=== PATIENT | male | born 1940 | race Caucasian/White ===

== ENCOUNTER 2022-01-09 09:35 | Outpatient (CLI) | payer MEDICARE, BC, SELFPAY ==
[2022-01-09 12:08] LABS: Albumin* 3.8 g/dL (3.3-5.0); Chloride* 110 mmol/L (96-114)
[2022-01-09 12:09] LABS: Potassium* 4.9 mmol/L (3.6-5.1); Sodium* 142 mmol/L (135-149)
[2022-01-09 12:11] LABS: Bilirubin Total* 0.4 mg/dL (0.1-1.5); Carbon Dioxide* 24 mmol/L (20-32); Cholesterol* 117 mg/dL (90-199); Creatinine* 2.5 mg/dL (0.5-1.5); Estimated Glomerular Filt Rate 25 ml/min; Total Protein* 6.1 g/dL (6.0-8.3)
[2022-01-09 12:12] LABS: Alanine Aminotransferase* 13 U/L (4-50); Alkaline Phosphatase* 71 U/L (40-150); Aspartate Amino Transferase* 15 U/L (12-35); Blood Urea Nitrogen* 35 mg/dL (7-30); Calcium* 8.7 mg/dL (8.4-10.6); Glucose* 84 mg/dL (60-115); HDL Cholesterol* 41 mg/dL (>=40); LDL Cholesterol Calculated 51 mg/dL (<100); Triglycerides* 127 mg/dL (40-149)
[2022-01-09 12:40] LABS: PSA Screen* 3.76 ng/mL (0.10-4.00)
== END 2022-01-09 09:36 | disposition home or self-care (01) ==
PROVIDERS: PCP Family Medicine; Visit Provider Family Medicine
DX: E78.5 Hyperlipidemia, unspecified (principal); I10 Essential (primary) hypertension; Z85.46 Personal history of malignant neoplasm of prostate; Z12.5 Encounter for screening for malignant neoplasm of prostate
CPT/HCPCS: 80053; 80061; 84153

== ENCOUNTER 2022-03-11 14:32 | Outpatient (CLI) | payer MEDICARE, BC, SELFPAY ==
[2022-03-11 17:24] LABS: Chloride* 109 mmol/L (96-114); Potassium* 4.4 mmol/L (3.6-5.1); Sodium* 139 mmol/L (135-149)
[2022-03-11 17:27] LABS: Creatinine* 2.5 mg/dL (0.5-1.5); Estimated Glomerular Filt Rate 25 ml/min
[2022-03-11 17:28] LABS: Blood Urea Nitrogen* 45 mg/dL (7-30); Calcium* 8.5 mg/dL (8.4-10.6); Carbon Dioxide* 22 mmol/L (20-32); Glucose* 96 mg/dL (60-115)
== END 2022-03-11 14:33 | disposition home or self-care (01) ==
PROVIDERS: PCP Family Medicine; Visit Provider Family Medicine
DX: R53.83 Other fatigue (principal); R53.1 Weakness
CPT/HCPCS: 80048

== ENCOUNTER 2022-11-22 11:02 | Emergency (ER) | payer MEDICARE, BC, SELFPAY ==
[2022-11-22 11:14] VITALS: BP 104/72; PULSE 74; RESP 18; TEMP 36.4; O2SAT 98
--- NOTE | 2022-11-22 11:34 | ED_ITS ---
HPI - General Adult General Chief complaint: Extremity Pain/Injury, Upper Stated complaint: Painful L arm, Weak Time Seen by Provider: 11/22/22 11:12 History of Present Illness HPI narrative: This 82-year-old male comes in reporting pain in his left elbow and proximal forearm area since yesterday morning. He is not aware of any injury event or strenuous activity. His family member with him states that he may have fallen and not remembered as sometimes he gets up at night to the bathroom. He does have a history of dementia. He normally ambulates with a walker. He has decreased ability to flex and extend his left elbow. Related Data Home Medications Medication Instructions Recorded Confirmed aspirin 81 mg tablet,delayed 81 mg PO QDAY 11/27/21 11/22/22 release (Adult Low Dose Aspirin) vitamin B complex 1 tab PO QDAY 01/12/22 11/22/22 Previous Rx's Medication Instructions Recorded carvedilol 25 mg tablet 25 mg PO BID #180 tabs 01/12/22 nitroglycerin 0.4 mg sublingual 0.4 mg sublingual Q5M PRN chest 01/12/22 tablet pain #25 tabs rosuvastatin 40 mg tablet 40 mg PO QDAY #90 tabs 01/12/22 isosorbide mononitrate 60 mg 60 mg PO QDAY #90 tabs 05/27/22 tablet,extended release 24 hr hydrocodone 5 mg-acetaminophen 325 1 tab PO Q4-6H PRN pain #12 tabs 11/22/22 mg tablet methylprednisolone 4 mg tablets in See Rx Instructions PO .COMPLEX 11/22/22 a dose pack (Medrol (Alfonso)) #21 ea Allergies Allergy/AdvReac Type Severity Reaction Status Date / Time HMG-CoA reductase inhibitor AdvReac Severe leg pain Uncoded 03/11/22 13:46 Review of Systems Status of ROS: Reports: 10 or more systems reviewed and unremarkable except as noted in History and below Narrative: Constitutional: No fevers, no weight gain or loss. Eyes: No discharge. No vision changes. HENT: No congestion, no sore throat, no ear pain. Cardiovascular: No chest pain, no palpitations. Respiratory: No shortness of breath, no wheezes, no cough. Gastrointestinal: No abdominal pain, no vomiting, no diarrhea. Genitourinary: No dysuria, no hematuria. Musculoskeletal: Left elbow and forearm pain as described above. Skin: No rashes, no pruritis. Neurological: No dizziness, weakness, sensory change, speech change. Endo/Heme/Allergies: No bruising or bleeding. No polydipsia. Pysch: no suicidality, no anxiety, no insomnia. All other systems reviewed and are negative. [facility] Medical History History of common carotid artery stent placement Myocardial infarction Surgical History Hx of heart artery stent Status post cataract extraction Status post lumbar spine surgery for decompression of spinal cord Status post prostatectomy Social History Smoking Status: Never smoker Exam Narrative: Exam Narrative: Constitutional: Well-developed, well-nourished, no acute distress. HEENT: Normocephalic, atraumatic. Neck: Normal range of motion. Nontender. Supple. Heart: Regular. No murmurs. Normal rate. Intact distal pulses. Lungs: Clear to auscultation. No chest discomfort. No wheezes, rhonchi, or rales. Abdomen: Normal bowel sounds. Nontender. No rebound tenderness. Genitalia: Deferred. Back: No midline tenderness. Normal range of motion. Extremities: Diffuse pain in the left elbow and proximal left forearm. There is no sign of deformity or significant swelling. He does have decreased range of motion for both flexion and extension at the elbow joint. Skin: Intact. No rash. Warm. No erythema or pallor. Neurologic: No altered sensation. No weakness. Alert and oriented. Psychiatric: No suicidality. No anxiety or depression. No insomnia. Nursing notes and vitals signs are reviewed. Const: Vital Signs, click to edit/add: Vital Signs - 24 hr 11/22/22 11:14 Temperature 97.5 F L Pulse Rate [Pulse Oximeter] 74 Respiratory Rate 18 Blood Pressure [Ri ght Upper Arm] 104/72 Pulse Oximetry 98 Oxygen Delivery Me thod Room Air Course Vital Signs Vital signs: Initial Vital Signs Temperature 97.5 F L 11/22/22 11:14 Temperature Source Temporal Artery Scan 11/22/22 11:14 Pulse Rate 74 11/22/22 11:14 Respiratory Rate 18 11/22/22 11:14 Blood Pressure 104/72 11/22/22 11:14 Blood Pressure Mean 82 11/22/22 11:14 Blood Pressure Position Sitting 11/22/22 11:14 Pulse Oximetry 98 11/22/22 11:14 Oxygen Delivery Method Room Air 11/22/22 11:14 Vital Signs Temperature 97.5 F L 11/22/22 11:14 Pulse Rate 74 11/22/22 11:14 Respiratory Rate 18 11/22/22 11:14 Blood Pressure 104/72 11/22/22 11:14 Pulse Oximetry 98 11/22/22 11:14 Oxygen Delivery Method Room Air 11/22/22 11:14 Temperature 97.5 F L 11/22/22 11:14 Pulse Rate 74 11/22/22 11:14 Respiratory Rate 18 11/22/22 11:14 Blood Pressure 104/72 11/22/22 11:14 Pulse Oximetry 98 11/22/22 11:14 Oxygen Delivery Method Room Air 11/22/22 11:14 Medical Decision Making MDM Narrative Medical decision making narrative: This patient comes in with pain primarily in his left elbow and he has associated decreased range of motion for flexion and extension. He does not report any specific injury event but does have some dementia and seems to have difficulty remembering things. There is no external sign of injury, that is there is no swelling or injury to the skin. X-ray images of his humerus and forearm on the left upper extremity are negative for fracture. There is evidence of degenerative disease. This patient is okay to return home. He did receive a sling and prescription for a few tablets of [place] and Medrol Dosepak. Imaging Data XR L Humerus: Radiologist's impression: No fracture. 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 XR L Forearm: Radiologist's impression: No fracture deformity. Degenerative joint disease. Discharge Plan Discharge Clinical Impression: Elbow injury Patient Disposition: Home w/ Parent or Adult Condition: Unchanged Additional Instructions: Increase activity as able. Wear sling as needed. Take medications also as needed and directed. Follow-up with orthopedic clinic if not improving. Call [phone] for appointment. Prescriptions: New hydrocodone-acetaminophen 5-325 mg tablet 1 tab PO Q4-6H PRN (Reason: pain) Qty: 12 0RF methylprednisolone [Medrol (Alfonso)] 4 mg tablets,dose pack See Rx Instructions .ROUTE .COMPLEX Qty: 21 0RF Rx Instructions: orally per package directions No Action aspirin [Adult Low Dose Aspirin] 81 mg tablet,delayed release (DR/EC) 81 mg PO QDAY vitamin B complex Tablet 1 tab PO QDAY carvedilol 25 mg tablet 25 mg PO BID Qty: 180 3RF Rx Instructions: must administer with a meal/food nitroglycerin 0.4 mg tablet, sublingual 0.4 mg sublingual Q5M PRN (Reason: chest pain) Qty: 25 0RF Rx Instructions: do not exceed 3 doses per episode rosuvastatin 40 mg tablet 40 mg PO QDAY Qty: 90 3RF isosorbide mononitrate 60 mg tablet extended release 24 hr 60 mg PO QDAY Qty: 90 2RF Follow Up/Referrals: Joe Rdz MD [Primary Care Provider] - Stand Alone Forms: [facility] Info Instructions
--- NOTE | 2022-11-22 11:38 | CRLHL7_ITS ---
For Patients: As a result of the Cures Act, medical imaging exams and procedure reports are released immediately into your electronic medical record. You may view this report before your referring provider. If you have questions, please contact your health care provider. Indication: Pain Technique: Two views left humerus Comparison: None Findings: Osteopenia. Degenerative changes at greater tuberosity. Chronic medial epicondylitis. Narrowing and spurring at the acromioclavicular joint. No fracture or intrinsic lesion. Impression: No fracture. 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 Dictated by Avtar Minor MD @ 11/22/2022 12:29:52 PM (Electronically Signed)
--- NOTE | 2022-11-22 11:38 | CRLHL7_ITS ---
For Patients: As a result of the Century Cures Act, medical imaging exams and procedure reports are released immediately into your electronic medical record. You may view this report before your referring provider. If you have questions, please contact your health care provider. Indication: Pain Technique: Two views left Comparison: None Findings: Degenerative changes are noted at the wrist. Chronic epicondylitis at the elbow. Chronic densities associated with the anterior elbow. No suspicious osseous lesion. No fracture. Impression: No fracture deformity. Degenerative joint disease. Dictated by Avtar Minor MD @ 11/22/2022 12:31:31 PM (Electronically Signed)
== END 2022-11-22 13:05 | disposition home or self-care (01) ==
PROVIDERS: Emergency Provider Emergency Medicine Emergency Medical Services; PCP Family Medicine
DX: S59.902A Unspecified injury of left elbow, initial encounter (principal)
CPT/HCPCS: 73060; 73090; 99284

== ENCOUNTER 2023-06-16 11:17 | Outpatient (CLI) | payer MEDICARE, BC, SELFPAY | END 2023-06-16 11:18 | disposition home or self-care (01) | PROVIDERS: PCP Family Medicine; Visit Provider Family Medicine | DX: E78.5 Hyperlipidemia, unspecified (principal); I10 Essential (primary) hypertension | CPT/HCPCS: 80053; 80061 ==

== ENCOUNTER 2024-02-09 10:23 | Outpatient (CLI) | payer MEDICARE, BC, SELFPAY ==
--- OUTSIDE RECORDS SUMMARY | 2024-02-10 20:01 | XMS_ITS | Clinical Summary ---
Author Organization [facility] Address [place], [place] [address] Care Team Providers Care Power Tong Operator Name Role Phone Joe Rdz MD Primary Care Provider [phone] Allergies No known active allergies Medications Medication Sig Dispensed Refills Start Date End Date Status nitroglycerin (NITROSTAT) 0.4 mg sublingual tablet Once 11/07/2018 Active carvediloL (COREG) 25 mg tabletIndications:Car diomyopathy, dilated, nonischemic (HC) Take 1 tablet by mouth 2 times daily. 180 tablet 3 12/08/2019 Active hydrALAZINE (APRESOLINE TABLET) 50 mg tabletIndications:Non ischemic dilated cardiomyopathy (HC) Take 1 tablet by mouth 3 times daily. 270 tablet 3 12/08/2019 Active isosorbide mononitrate SR (IMDUR) 120 mg Sustained-Release tabletIndications:Car diomyopathy, dilated, nonischemic (HC) Take 1 Tablet (120 mg) by mouth once daily before a meal. 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 Social History Tobacco Use Types Packs/Day Years Used Date Smoking Tobacco: Never Smokeless Tobacco: Never Social Connections Answer Date Recorded Frequency of Communication with Friends and Fami ly Not on file 03/15/2021 Financial Resource Strain Answer Date R ecorded Difficulty of Paying Living Expenses Not on file 03/15/2021 Difficulty of Paying Living Expenses Not on file 03/15/2021 Sex and Gender Information Value Date Recorded Sex Assigned at Not on file Gender Identity Not on file Sexual Orientation Not on file Obstetrics History Last Filed Vital Signs Vital Sign Reading Time Taken Comments Blood Pressure 99/54 12/08/2019 11:04 AM CDT Pulse 61 12/08/2019 11:04 AM CDT Temperature 36.5 C (97.7 F) 10/21/2015 8:27 AM CDT Respiratory Rate 14 12/08/2019 11:04 AM CDT Oxygen Saturation 97% 12/26/2018 10:46 AM CDT Inhaled Oxygen Concentration - - Weight 86.6 kg (191 lb) 12/08/2019 11:04 AM CDT Height 180.3 cm (5' 10.98) 05/29/2016 11:52 AM CDT Body Mass Index 26.65 05/29/2016 11:52 AM CDT Plan of Treatment Health Maintenance Due Date Last Done Comments Tdap 1951 Depression screening for age 12+ 1952 Tetanus booster 1960 Zoster (shingles) series for age 50+ (1 of 2) 1990 Medicare Wellness for age 65+ 2005 Pneumococcal series for age 65+ (1 of 1 - PCV) 2005 RSV vaccine for adults or pr egnancy (1 - 1-dose 75+ series) 2015 BMI (ht and wt on same day) for age 18+ 05/29/2017 0 05/29/2016, 10/21/2015 COVID-19 vaccine series (2023- season) 2023 Influenza for age 65+ 11/14/2023 Care Teams Power Tong Operator Relationship Specialty Start Date End Date Joe Rdz MD [address] [place] [id number] PCP - General Family Practice 11/30/19
== END 2024-02-09 10:24 | disposition home or self-care (01) ==
LOC: NFLDREF 02-10 19:59
PROVIDERS: PCP Family Medicine; Referring Provider Family Medicine; Visit Provider Family Medicine
DX: R30.0 Dysuria (principal); N39.0 Urinary tract infection, site not specified; M54.9 Dorsalgia, unspecified
CPT/HCPCS: 87086

== ENCOUNTER 2024-02-26 13:57 | Observation (INO) | payer MEDICARE, BC, SELFPAY ==
[2024-02-26] VITALS (7 sets, daily range): BP systolic 114–116; BP diastolic 87–93; PULSE 78–101; RESP 12–18; TEMP 36.2; O2SAT 96–100
--- NOTE | 2024-02-26 14:33 | ED_ITS ---
HPI - Weakness General Time Seen by Provider: 14:33 Date Seen: 02/26/24 Chief complaint: Weakness Stated complaint: Trouble breathing not able to eat, can't stand Time Seen by Provider: 02/26/24 14:09 Source: patient, family, RN notes reviewed and old records reviewed Mode of arrival: wheelchair Limitations: no limitations History of Present Illness HPI Narrative: This 83-year-old male is brought in by his sons this morning from his home where he resides independently with his . One of his sons lives next door and they do help. His typically will provide food in meals but patient has been noted to be having decline over the last at least few months. He was into the clinic to see primary care for hematuria on February 08. Sons note that nothing was found, no infection. Urine culture indeed was negative from that visit. Urinalysis from that visit did not support any significant hematuria. This morning the patient refused to eat, did not eat the role that he would typically eat. He states he had some coffee this morning but is sons do not think that that is the case. He will complain of generalized body pain at times to his son's 5 but he notes no pain today. They have not been concerned about any recent illness with him other than the visit for the possible hematuria. Sons did tell nursing staff that they wanted placement for him, they did not bring this up with me immediately. One of the sons was wondering about getting electrolytes and labs, maybe getting IV fluids. I reviewed with him that we certainly will be looking at labs, we can consider IV fluids but I would like to see some of our workup for such as chest x-ray and labs. Patient is currently hemodynamically stable and I do think we have time to look into things and do an appropriate workup. 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 The opted not to do any shunting or further treatment. Patient is known to have had a heart attack in 2020. He has a history of prostate cancer with prostatectomy in 2010, his PSA was elevated to 3.8 back in 2021 and he opted for if no further treatment or evaluation. Complaint: generalized weakness Related Data Home Medications ?Medication ?Instructions ?Recorded ?Confirmed aspirin 81 mg tablet,delayed 81 mg PO QDAY 11/27/21 02/09/24 release (Adult Low Dose Aspirin) gabapentin 300 mg capsule 300 - 600 mg PO BID 02/09/24 Previous Rx's ?Medication ?Instructions ?Recorded carvedilol 25 mg tablet 25 mg PO BID #180 tabs 06/16/23 rosuvastatin 40 mg tablet 40 mg PO QDAY #90 tabs 06/16/23 isosorbide mononitrate 30 mg 30 mg PO QDAY #90 tabs 11/30/23 tablet,extended release 24 hr Allergies Allergy/AdvReac Type Severity Reaction Status Date / Time HMG-CoA reductase inhibitor AdvReac Severe leg pain Uncoded 02/09/24 10:25 Review of Systems Status of ROS: Reports: 6 or more systems reviewed and unremarkable except as noted in History and below Narrative: Do question patient's reliability on his review of systems however. [facility] Medical History History of common carotid artery stent placement ?Z98.890 - Other specified postprocedural states (ICD-10) ?Z95.828 - Presence of other vascular implants and grafts (ICD-10) Myocardial infarction ?I21.9 - Acute myocardial infarction, unspecified (ICD-10) Surgical History Status post lumbar spine surgery for decompression of spinal cord ?Z98.890 - Other specified postprocedural states (ICD-10) Status post cataract extraction ?Z98.49 - Cataract extraction status, unspecified eye (ICD-10) Status post prostatectomy ?Z90.79 - Acquired absence of other genital organ(s) (ICD-10) Hx of heart artery stent ?Z95.5 - Presence of coronary angioplasty implant and graft (ICD-10) Social History What is your current living situation?: I presently have a place to live Problems where you live: no known problems In the past 12 months, utilities in danger of being shut off: no In the past 12 mos, have been you worried that your food would run out before you had money to buy more?: never true In the past 12 mos, the food you bought just didn't last and you didn't have money to buy more?: never true Smoking Status: Never smoker How often does anyone, including family, friends and others, physically hurt you : never How often does anyone, including family, friends and others, insult or talk down to you: never How often does anyone, including family, friends and others, threaten you with harm: never How often does anyone, including family, friends and others, scream or curse at you: never Exam Const: Vital Signs, click to edit/add: Vital Signs - 24 hr 02/26/24 14:12 02/26/24 14:16 02/26/24 14:50 Temperature 97.1 F L Pulse Rate 97 Pulse Rate [Pulse Oximeter] 78 Respiratory Rate 18 Blood Pressure 115/92 H Blood Pressure [Ri ght Upper Arm] 115/92 H Pulse Oximetry 100 98 98 Oxygen Delivery Me thod Room Air 02/26/24 15:40 02/26/24 17:09 Temperature Pulse Rate 97 101 H Pulse Rate [Pulse Oximeter] Respiratory Rate Blood Pressure 116/93 H 114/87 Blood Pressure [Ri ght Upper Arm] Pulse Oximetry 98 96 Oxygen Delivery Me thod This 83-year-old male is alert and interactive, lying in bed. Somewhat disheveled but pleasant, conversive with me. Pupils are equal round reactive, sclera clear. He has some mattering below is eyes stuck on the lower eyelids of his skin. There is no conjunctival changes however. Symmetrical facial function, lips appear normal. Oral mucosa somewhat dry. Neck slender, lying over to his left side in bed, feel no masses or adenopathy. Lungs sound clear, no wheezing or crackles but does seem like he is a bit tachypneic when attempting to talk. Respiratory rate baseline is not elevated however. CV regular rate and rhythm, here no significant murmur. Abdomen is slender but soft, no rebound or guarding, no organomegaly. Has no lower extremity edema. He has 5/5 symmetric hand inside sales associate strength, normal strength about is plantar flexion dorsiflexion of his feet/ankles, can lift each leg off the bed. Note no baseline tremor. Documenting provider has reviewed patient's vital signs: yes Course Course ED Course: This patient has chronic medical issues and may just be having general decline. We certainly will do full workup and look at all labs, obtain EKG. Will look at a portable chest x-ray. Will do the triple viral swab in case he may need placement. This could be anything from metabolic to progressive hydrocephalus and dementia which she opted not to do anything further with in 2020, complicating silent PA, infectious etiology. Reevaluation(s) Time of Reevaluation #1: 15:29 Reevaluation #1: Have reviewed initial labs with patient's venous lactate 3.3 and venous pH of 7.269. Will initiate 500 mL normal saline. Await rest of his labs. Time of Reevaluation #2: 16:04 Reevaluation #2: But have reviewed with patient's son that there dad is certainly seemingly quite sick based on labs. His liver enzymes and bilirubin are elevated, lactate is up. His creatinine is at 3 at his baseline chronic kidney disease but is potassium is at 6, was 5.3 at his last clinic visit on February 08. We did discuss cholecystitis and cholecystostomy tube, do not feel that he is a candidate for cholecystectomy, probable high surgical risk. He we discussed his potassium, that he certainly may be trending towards requirements for dialysis, may possibly just be ill precipitating this. His 1 son had contacted the hospice already, they are considering hospice for him. They would like a bit more information. We did discuss doing CT imaging. Patient Registration Rep is not here and we are under severe whether with no transfers. They do not want me to call the ticket speculator in at this point, will just rely on CT imaging at this point. Time of Reevaluation #3: 17:49 Reevaluation #3: Have went back to talk to his sons. I have both CT reports, did add in a chest CT when he was over in Radiology as they called me over due to the aneurysm. 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 He is complaining of back pain at this time, has become quite agitated. We did give him 0.5 mg IV Ativan as his sons agree with hospice/comfort care. His pro BNP is severely elevated at 50,000 thousand, there is some fluid definitely seen on imaging. He does have gallstones in some fluid around the gallbladder but there is fluid around the liver as well. His liver enzyme elevation may actually be from congestive heart failure, there still could be a component of gallbladder disease, we do not know at this point. He also has his worsening renal failure with potassium elevation. IV fluids would be given if he were not in such significant congestive heart failure. He most definitely is not in a good situation for surgical correction of his aneurysm, sons understand and do not want to pursue this. I have already spoken with the hospitalist regarding this patient, we will make him comfort care. Have reviewed with the sons what that will look like. We are not planning on doing IV fluids, can initiate Ativan, morphine and Haldol p.r.n. as needed for symptoms. They are comfortable with this. They were given copies of his CT reports so that they can share with other family members. Vital Signs Vital signs: Initial Vital Signs Pulse Rate 97 02/26/24 14:12 Blood Pressure 115/92 H 02/26/24 14:12 Blood Pressure Mean 99 02/26/24 14:12 Pulse Oximetry 100 02/26/24 14:12 Vital Signs Pulse Rate 97 02/26/24 14:12 Blood Pressure 115/92 H 02/26/24 14:12 Pulse Oximetry 100 02/26/24 14:12 Temperature 97.1 F L 02/26/24 14:16 Pulse Rate 101 H 02/26/24 17:09 Respiratory Rate 18 02/26/24 14:16 Blood Pressure 114/87 02/26/24 17:09 Pulse Oximetry 96 02/26/24 17:09 Oxygen Delivery Method Room Air 02/26/24 14:16 Medications Administered Medications: Generic Name Dose Route Start Last Admin Trade Name Freq PRN Reason Stop Dose Admin Lorazepam 0.5 mg 02/26/24 17:36 02/26/24 17:49 Lorazepam 2 Mg/Ml Inj IVP 0.5 mg Q6H PRN Administration Discontinued Medications Generic Name Dose Route Start Last Admin Trade Name Freq PRN Reason Stop Dose Admin Sodium Chloride 500 mls @ 500 mls/hr 02/26/24 15:28 02/26/24 17:47 0.9 % Sodium Chloride 500 Ml IV 02/26/24 16:27 Infused .Q1H ONE Infusion MDM - Weakness Lab Data Attestation: I reviewed the patient's lab results. Labs: Lab Results 02/26/24 02/26/24 Range/Units 14:45 15:15 WBC 9.43 (4.50-11.00) K/uL RBC 3.47 L (4.30-5.90) m/uL Hgb 11.1 L (13.5-17.5) gm/dL Hct 35.6 L (37.0-53.0) % MCV 103 H (80-100) fL MCH 32 (26-34) pg MCHC 31 L (32-36) gm/dL RDW Coeff of Khadar 17.9 H (11.5-15.5) % Plt Count 141 (140-440) K/uL Neut % (Auto) 85.7 H (42.0-72.0) % Lymph % (Auto) 7.8 L (20-44) % [place] % (Auto) 6.0 (0.0-11.0) % Eos % (Auto) 0.0 (0.0-7.0) % Baso % (Auto) 0.2 (0.0-3.0) % Neut # (Auto) 8.10 H (1.7-7.0) K/uL Lymph # (Auto) 0.70 L (0.90-2.90) K/uL [place] # (Auto) 0.60 (0.00-0.90) K/UL Eos # (Auto) 0.00 (0.00-0.50) K/uL Baso # (Auto) 0.02 (0.00-0.30) K/uL Abs Immat Gran (auto) 0.03 (0.00-0.30) K/uL Imm/Tot Granulo (auto) 0.3 % ESR 7 (2-15) mm/hr VBG pH 7.269 L (7.32-7.43) VBG pCO2 33 L (40-50) mmHG VBG pO2 < 30.1 (25-47) mmHG VBG HCO3 15 L (21-28) mmol/L Sodium 141 (135-149) mmol/L Potassium 6.0 H (3.6-5.1) mmol/L Chloride 111 (96-114) mmol/L Carbon Dioxide 14 L (20-32) mmol/L Anion Gap 16 H (7-15) mEq/L BUN 61 H (7-30) mg/dL Creatinine 3.0 H (0.5-1.5) mg/dL Estimated GFR 20 ml/min Glucose 103 (60-115) mg/dL Lactate 3.3 H (0.5-1.9) mmol/L Calcium 9.3 (8.4-10.6) mg/dL Magnesium 2.6 (1.5-2.6) mg/dL Total Bilirubin 1.6 H (0.1-1.5) mg/dL AST 496 H (12-35) U/L ALT 386 H (4-50) U/L Alkaline Phosphatase 102 (40-150) U/L Troponin I 0.04 (0.01-0.04) ng/mL C-Reactive Protein 2.1 H (0.5-1.0) mg/dL NT-Pro-B Natriuret Pep 19425 pg/mL Total Protein 7.2 (6.0-8.3) g/dL Albumin 4.2 (3.3-5.0) g/dL SARS-CoV-2 (PCR) Negative SARS-CoV-2 (Negative) Influenza Type A (PCR) Negative PCR FLU A (Negative) Influenza Type B (PCR) Negative PCR FLU B (Negative) RSV (PCR) Negative PCR RSV (Negative) Imaging Data Chest x-ray: Attestation: I have reviewed the pertinent imaging results. My impression: Has increased cardiac size, maybe some increased markings consistent with edema. Radiologist's impression: Patient: EMELIA STOLL SR. Facility:?[facility] Patient ID:?[id number] Site Patient ID:?[id number]. Site :?[id number] Study:?XRay-Chest Portable-02/26/2024 3:00:15 PM Ordering Physician:Arielle Armstrong Final Report: Indication: : Weakness TECHNIQUE: Single-view chest. FINDINGS: Enlarged cardiac silhouette. Slight prominence interstitial markings may represent pulmonary edema. No effusion or pneumothorax. Dictated by Denia Nick MD @ 02/26/2024 4:03:28 PM (Electronic Signature) CT scan - abdomen: Attestation: I have reviewed the pertinent imaging results. Radiologist's impression: Patient: EMELIA STOLL . Facility:?[facility] Patient ID:?[id number] Site Patient ID:?[id number]. Site :?[id number] Study:?CT-Abdomen/Pelvis w/o-02/26/2024 4:20:36 PM Ordering Physician:Arielle Armstrong Final Report: Indication: Weakness, elevated LFTs. Technique: CT of the abdomen and pelvis was performed without contrast. Comparison: None available. Findings: Visualized lung bases: Mild interlobular septal thickening in the visualized lung bases. Trace bilateral pleural effusion. Moderate cardiomegaly. Atherosclerotic coronary artery calcifications. Liver: Diffuse hepatic steatosis. Trace perihepatic ascites. Small calcified gal lstones within the gallbladder body and neck with hyperdense sludge. No gallbladder distension. Trace pericholecystic edema/stranding, possibly due to perihepatic ascites. No biliary ductal dilation. Pancreas: Unremarkable for unenhanced technique. Spleen: Unremarkable for unenhanced technique. Adrenals: Unremarkable for unenhanced technique. Kidneys: Moderate left hydroureteronephrosis with atrophic left kidney. No definite ureteral calculus is identified though there are left pelvic sidewall surgical clips in the region of the distal ureter. No right hydronephrosis or nephrolithiasis. Aorta/IVC: Extensive atherosclerotic arterial calcifications. 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 Infrarenal abdominal aortic aneurysm measuring 7.0 x 6.9 cm. 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 Left common iliac artery aneurysms measuring 1.9 cm. Lymph nodes: No lymphadenopathy. Prominent inguinal lymph nodes measuring less than 1 cm in short axis Bowel: Nonobstructed bowel. Sigmoid diverticulosis with minimal stranding at the junction of the descending and sigmoid colon. Normal appendix. No intraperitoneal free air. Small volume pelvic free fluid. Pelvis: Status post prostatectomy. Surgical clips along the pelvic sidewalls. Soft tissue thickening along the left aspect of the bladder in the region of the distal ureter measures approximally 4.4 x 1.8 cm in axial dimensions. Bones/body wall: Severe multilevel degenerative disc disease and facet arthropathy. Osseous demineralization. Sclerotic lesion within the S2 vertebral body. Lower thoracic diffuse idiopathic skeletal hyperostosis. Impression: 1. Diffuse hepatic steatosis with trace perihepatic ascites. Cholelithiasis with trace pericholecystic edema which may be secondary to perihepatic ascites. No additional findings to suggest acute cholecystitis. Recommend correlation for right upper quadrant abdominal pain and consider ultrasound as clinically indicated. 2. Infrarenal abdominal aortic aneurysm measuring 7 cm. Recommend vascular surgery referral due to increased risk of rupture. Additionally, there is a saccular aneurysm arising from the distal descending thoracic aorta as well as bilateral common iliac artery aneurysms, as described. 3. Sigmoid diverticulosis with minimal stranding at the junction of the descending and sigmoid colon, age-indeterminate and may be secondary to mild acute diverticulitis versus sequela of prior diverticulitis. 4. Status post prostatectomy and pelvic lymphadenectomy. There is moderate left hydroureteronephrosis with dilated left ureter to the level of the left pelvic surgical clips/soft tissue thickening along the left aspect of the bladder. Fin dings may represent postoperative change versus local recurrence as a cause for the left hydroureteronephrosis. Left renal atrophy is present. 5. Sclerotic lesion within the S2 vertebral body. If this patient has a history of prostate cancer, findings raise concern for osseous metastasis. 6. Cardiomegaly with mild interstitial edema in the visualized lung bases and trace pleural effusions. Findings were discussed via telephone with Patti Villareal on 02/26/2024 at 5:10 p.m.. Please note that all CT scans at this facility use dose modulation, iterative reconstruction, and/or weight-based dosing when appropriate to reduce radiation dose to as low as reasonably achievable. Dictated by Sandy Yousif MD @ 02/26/2024 5:17:21 PM (Electronic Signature) CT scan - chest: Attestation: I have reviewed the pertinent imaging results. Radiologist's impression: Patient: EMELIA STOLL . Facility:?[facility] Patient ID:?[id number] Site Patient ID:?[id number]. Site :?[id number] Study:?CT-Chest w/o-02/26/2024 4:28:11 PM Ordering Physician:Arielle Armstrong Final Report: INDICATION: Weakness TECHNIQUE: CT chest without contrast. COMPARISON: None. FINDINGS: Lungs and pleura: Emphysema. Mild interlobular septal thickening. Small effusions bilaterally. Subpleural 4 millimeter nodule right middle lobe 3/59. Basilar atelectasis Heart and vasculature: 4.3 centimeter ascending thoracic aortic aneurysm. Descending thoracic aorta measures 3.5 centimeters mild diffuse atherosclerotic vascular calcifications. The heart is enlarged coronary artery calcification. The distal thoracic aorta at the level of the GE junction is aneurysmal measuring 3.9 centimeters Along the distal thoracic aorta there is a saccular aneurysm measuring approximally 1.7 x 1.6 centimeters . Lymph nodes/mediastinum: No mediastinal, hilar, or axillary adenopathy. Chest wall: No masses. Upper abdomen: There may be edematous changes in right upper quadrant this is only partially seen. Bones: Unremarkable for age. IMPRESSION: 1. Ascending thoracic aorta measuring 4.3 centimeters. The mid descending thoracic aorta measures 3.5 centimeters distal descending thoracic aorta at the level of the diaphragmatic hiatus measures 3.9 centimeters. There is a saccular aneurysm off the distal thoracic aorta measuring 1.7 x 1.6 centimeters. 2. Small effusions. Interlobular septal thickening may represent pulmonary edema. 4 millimeter right middle lobe nodule follow-up per Fleischner society guidelines. Findings in the abdomen pelvis can be referred to the accompanying CT abdomen pelvis report. Please note that all CT scans at this facility use dose modulation, iterative reconstruction, and/or weight-based dosing when appropriate to reduce radiation dose to as low as reasonably achievable. Dictated by Denia Nick MD @ 02/26/2024 5:07:29 PM (Electronic Signature) ECG Data Attestation: I personally reviewed and interpreted this ECG as follows: (Atrial fibrillation, 92 beats per minute, left bundle branch block) ECG interpretation date: 02/26/24 ECG interpretation time: 15:30 Prior ECG tracings: available for review (EKG from 1999 shows atrial fibrillation at 64 beats per minute, left bundle branch block.) Discharge Plan Discharge Clinical Impression: Acute hyperkalemia, Prostate cancer Chronic kidney disease Qualifiers: Chronic kidney disease stage: stage 4 (GFR 15-29) Qualified Code(s): N18.4 - Chronic kidney disease, stage 4 (severe) Abdominal aortic aneurysm Qualifiers: Abdominal aorta location: unspecified Presence of rupture: without rupture Qualified Code(s): I71.40 - Abdominal aortic aneurysm, without rupture, unspecified Cholelithiasis Qualifiers: Cholelithiasis location: gallbladder Congestive heart failure Qualifiers: Heart failure type: unspecified Heart failure chronicity: acute on chronic Qualified Code(s): I50.9 - Heart failure, unspecified Patient Disposition: Admitted As Observation Prescriptions: No Action carvedilol 25 mg tablet 25 mg PO BID Qty: 180 3RF Rx Instructions: must administer with a meal/food rosuvastatin 40 mg tablet 40 mg PO QDAY Qty: 90 3RF gabapentin 300 mg capsule 300 - 600 mg PO BID aspirin [Adult Low Dose Aspirin] 81 mg tablet,delayed release (DR/EC) 81 mg PO QDAY isosorbide mononitrate 30 mg tablet extended release 24 hr 30 mg PO QDAY Qty: 90 0RF Follow Up/Referrals: Joe Rdz MD [Primary Care Provider] -
--- NOTE | 2024-02-26 14:40 | CRLHL7_ITS ---
For Patients: As a result of the Century Cures Act, medical imaging exams and procedure reports are released immediately into your electronic medical record. You may view this report before your referring provider. If you have questions, please contact your health care provider. Indication: : Weakness TECHNIQUE: Single-view chest. FINDINGS: Enlarged cardiac silhouette. Slight prominence interstitial markings may represent pulmonary edema. No effusion or pneumothorax. Dictated by Denia Nick MD @ 02/26/2024 4:03:28 PM (Electronically Signed)
[2024-02-26 15:20] LABS: HCO3 VBG 15 mmol/L (21-28); Lactate* 3.3 mmol/L (0.5-1.9); PCO2 VBG 33 mmHG (40-50); PO2 VBG < 30.1 mmHG (25-47); pH VBG 7.269 (7.32-7.43)
[2024-02-26 15:21] LABS: Basophils Absolute Auto 0.02 K/uL (0.00-0.30); Basophils Percent Auto 0.2 % (0.0-3.0); Hematocrit 35.6 % (37.0-53.0); Hemoglobin* 11.1 gm/dL (13.5-17.5); Immature Granulocytes Abs Auto 0.03 K/uL (0.00-0.30); Immature Granulocytes Pct Auto 0.3 %; Lymphocytes Percent Auto 7.8 % (20-44); Mean Corpuscular HGB Conc 31 gm/dL (32-36); Mean Corpuscular Hemoglobin 32 pg (26-34); Mean Corpuscular Volume 103 fL (80-100); Neutrophils Percent Auto 85.7 % (42.0-72.0); Platelet Count* 141 K/uL (140-440); RDW Coefficient of Variation % 17.9 % (11.5-15.5); Red Blood Count 3.47 m/uL (4.30-5.90); White Blood Count* 9.43 K/uL (4.50-11.00)
[2024-02-26 15:35] LABS: Albumin* 4.2 g/dL (3.3-5.0); Chloride* 111 mmol/L (96-114); Sodium* 141 mmol/L (135-149)
[2024-02-26 15:37] LABS: Slide Review Reflex No
[2024-02-26 15:38] LABS: Alanine Aminotransferase* 386 U/L (4-50); Alkaline Phosphatase* 102 U/L (40-150); Anion Gap 16 mEq/L (7-15); Aspartate Amino Transferase* 496 U/L (12-35); Bilirubin Total* 1.6 mg/dL (0.1-1.5); Carbon Dioxide* 14 mmol/L (20-32); Estimated Glomerular Filt Rate 20 ml/min; Total Protein* 7.2 g/dL (6.0-8.3)
[2024-02-26 15:39] LABS: Blood Urea Nitrogen* 61 mg/dL (7-30); Calcium* 9.3 mg/dL (8.4-10.6); Glucose* 103 mg/dL (60-115); Magnesium* 2.6 mg/dL (1.5-2.6)
[2024-02-26] MEDS: 0.9 % SODIUM CHLORIDE 500 ML 500 ML IV (15:39)
[2024-02-26 15:41] LABS: C Reactive Protein* 2.1 mg/dL (0.5-1.0)
[2024-02-26 15:50] LABS: Troponin I* 0.04 ng/mL (0.01-0.04)
[2024-02-26 15:52] LABS: PCR FLU A Negative PCR FLU A (Negative); PCR FLU B Negative PCR FLU B (Negative); PCR RSV Negative PCR RSV (Negative); SARS PCR* Negative SARS-CoV-2 (Negative)
--- NOTE | 2024-02-26 16:04 | CRLHL7_ITS ---
For Patients: As a result of the Century Cures Act, medical imaging exams and procedure reports are released immediately into your electronic medical record. You may view this report before your referring provider. If you have questions, please contact your health care provider. Indication: Weakness, elevated LFTs. Technique: CT of the abdomen and pelvis was performed without contrast. Comparison: None available. Findings: Visualized lung bases: Mild interlobular septal thickening in the visualized lung bases. Trace bilateral pleural effusion. Moderate cardiomegaly. Atherosclerotic coronary artery calcifications. Liver: Diffuse hepatic steatosis. Trace perihepatic ascites. Small calcified gallstones within the gallbladder body and neck with hyperdense sludge. No gallbladder distension. Trace pericholecystic edema/stranding, possibly due to perihepatic ascites. No biliary ductal dilation. Pancreas: Unremarkable for unenhanced technique. Spleen: Unremarkable for unenhanced technique. Adrenals: Unremarkable for unenhanced technique. Kidneys: Moderate left hydroureteronephrosis with atrophic left kidney. No definite ureteral calculus is identified though there are left pelvic sidewall surgical clips in the region of the distal ureter. No right hydronephrosis or nephrolithiasis. Aorta/IVC: Extensive atherosclerotic arterial calcifications. 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 Infrarenal abdominal aortic aneurysm measuring 7.0 x 6.9 cm. 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 Left common iliac artery aneurysms measuring 1.9 cm. Lymph nodes: No lymphadenopathy. Prominent inguinal lymph nodes measuring less than 1 cm in short axis Bowel: Nonobstructed bowel. Sigmoid diverticulosis with minimal stranding at the junction of the descending and sigmoid colon. Normal appendix. No intraperitoneal free air. Small volume pelvic free fluid. Pelvis: Status post prostatectomy. Surgical clips along the pelvic sidewalls. Soft tissue thickening along the left aspect of the bladder in the region of the distal ureter measures approximally 4.4 x 1.8 cm in axial dimensions. Bones/body wall: Severe multilevel degenerative disc disease and facet arthropathy. Osseous demineralization. Sclerotic lesion within the S2 vertebral body. Lower thoracic diffuse idiopathic skeletal hyperostosis. Impression: 1. Diffuse hepatic steatosis with trace perihepatic ascites. Cholelithiasis with trace pericholecystic edema which may be secondary to perihepatic ascites. No additional findings to suggest acute cholecystitis. Recommend correlation for right upper quadrant abdominal pain and consider ultrasound as clinically indicated. 2. Infrarenal abdominal aortic aneurysm measuring 7 cm. Recommend vascular surgery referral due to increased risk of rupture. Additionally, there is a saccular aneurysm arising from the distal descending thoracic aorta as well as bilateral common iliac artery aneurysms, as described. 3. Sigmoid diverticulosis with minimal stranding at the junction of the descending and sigmoid colon, age-indeterminate and may be secondary to mild acute diverticulitis versus sequela of prior diverticulitis. 4. Status post prostatectomy and pelvic lymphadenectomy. There is moderate left hydroureteronephrosis with dilated left ureter to the level of the left pelvic surgical clips/soft tissue thickening along the left aspect of the bladder. Findings may represent postoperative change versus local recurrence as a cause for the left hydroureteronephrosis. Left renal atrophy is present. 5. Sclerotic lesion within the S2 vertebral body. If this patient has a history of prostate cancer, findings raise concern for osseous metastasis. 6. Cardiomegaly with mild interstitial edema in the visualized lung bases and trace pleural effusions. Findings were discussed via telephone with Patti Villareal on 02/26/2024 at 5:10 p.m.. Please note that all CT scans at this facility use dose modulation, iterative reconstruction, and/or weight-based dosing when appropriate to reduce radiation dose to as low as reasonably achievable. Dictated by Sandy Yousif MD @ 02/26/2024 5:17:21 PM (Electronically Signed)
[2024-02-26 16:16] LABS: NT Pro B Type NatriureticPept* 58500 pg/mL
[2024-02-26 16:18] LABS: Erythrocyte SedimentationRate* 7 mm/hr (2-15)
--- NOTE | 2024-02-26 16:21 | CRLHL7_ITS ---
For Patients: As a result of the Century Cures Act, medical imaging exams and procedure reports are released immediately into your electronic medical record. You may view this report before your referring provider. If you have questions, please contact your health care provider. INDICATION: Weakness TECHNIQUE: CT chest without contrast. COMPARISON: None. FINDINGS: Lungs and pleura: Emphysema. Mild interlobular septal thickening. Small effusions bilaterally. Subpleural 4 millimeter nodule right middle lobe . Basilar atelectasis Heart and vasculature: 4.3 centimeter ascending thoracic aortic aneurysm. Descending thoracic aorta measures 3.5 centimeters mild diffuse atherosclerotic vascular calcifications. The heart is enlarged coronary artery calcification. The distal thoracic aorta at the level of the GE junction is aneurysmal measuring 3.9 centimeters Along the distal thoracic aorta there is a saccular aneurysm measuring approximally 1.7 x 1.6 centimeters . Lymph nodes/mediastinum: No mediastinal, hilar, or axillary adenopathy. Chest wall: No masses. Upper abdomen: There may be edematous changes in right upper quadrant this is only partially seen. Bones: Unremarkable for age. IMPRESSION: 1. Ascending thoracic aorta measuring 4.3 centimeters. The mid descending thoracic aorta measures 3.5 centimeters distal descending thoracic aorta at the level of the diaphragmatic hiatus measures 3.9 centimeters. There is a saccular aneurysm off the distal thoracic aorta measuring 1.7 x 1.6 centimeters. 2. Small effusions. Interlobular septal thickening may represent pulmonary edema. 4 millimeter right middle lobe nodule follow-up per Fleischner society guidelines. Findings in the abdomen pelvis can be referred to the accompanying CT abdomen pelvis report. Please note that all CT scans at this facility use dose modulation, iterative reconstruction, and/or weight-based dosing when appropriate to reduce radiation dose to as low as reasonably achievable. Dictated by Denia Nick MD @ 02/26/2024 5:07:29 PM (Electronically Signed)
[2024-02-26] MEDS: LORazepam 2 MG/ML inj 0.5 MG IVP (17:49)
--- NOTE | 2024-02-26 18:06 | PM.IMHP1 ---
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 He has known heart disease with half HFrEF, chronic kidney disease, cognitive decline that has dwindled in the last year. Acutely he seems more short of breath and confused and weak in the last few days. He lives with his , son who lives next door. They have been very supportive but recognized that there has been more dramatic changes in the last few weeks. In 2020 he had a non-STEMI that transferred him to [facility] where he had PTCA and stent placement. At that time he had acute systolic heart failure and this likely has just worsened over time. His BNP at that time was 6000 and now it is 58,000. He has been in stage 4 chronic kidney disease for several years. He has had normal liver enzymes until jacinto. When compared to January 2024 labs he has all new liver congestion and ascites. No fever. He has adequate blood pressure mildly tachycardic. No significant respiratory distress but his respiratory effort has been noted to be weak the last few days. He has been disoriented at home. Mildly agitated at times. ER COURSE: CT chest abdomen pelvis. Labs. Small fluid bolus. IV 0.5 mg of lorazepam. CODE STATUS: DNR/DNI. Hospice desired. EMERGENCY CONTACT PLAN: He is close with both sons and obviously he lives with his . I spoke with Anuj acsey. Anuj Bosch Rel To Pat Son I've updated the PFSH, medications and allergies in the Expanse tabs. INVESTIGATIONS: LABS/MICRO/ECG/IMAGING Blood pressure has been adequate 115/90. Pulse is high 90s to low 100s. Respiratory rate is 18. His pulse ox is 96%. On room air. I have reviewed his blood work. I note a chronic anemia with a hemoglobin of 11.1. A normal white blood cell count. And elevated MCV at 103. Platelet count a 141 I note a anion gap metabolic acidosis at 7.2 pCO2 33, bicarb is 14. Stable chronic kidney disease with a creatinine of 3.0. BUN of 61. GFR 20. Glucose 103. Lactate 3.3. New transaminitis with an AST and ALT of 496/386. Total bili 1.6 Normal troponin C reactive protein 2.1 BNP is 58,500 and three years ago it was 6,052 at [facility]. Neg resp viral screen. Last echo was 2020 during [facility] hospitalization for NSTEMI + PTCA w/stent placement in proximal RCA Final Impressions 1. Severely enlarged left ventricular chamber size, calculated ejection fraction; 31%. 2. Regional wall motion abnormalities were present (see wall motion graphics). 3. Grade 1/3 left ventricular diastolic dysfunction, consistent with low to normal left ventricular filling pressure. 4. Mildly enlarged right ventricular chamber size with normal systolic function. ?Estimated RV systolic pressure; 26 mm Hg assuming right atrial pressure of 5 mmHg. 5. No hemodynamically significant valvular heart disease. 6. Mildly enlarged mid ascending aorta diameter (diameter 46 mm at mid level). Upper limit of normal for the patient ?43 mm. 7. Normal inferior vena cava size with normal inspiratory collapse (>50%). 8. No pericardial effusion. 9. Compared to the report of 05/15/2016 the following changes have occurred: Regional wall motion abnormalities are evident on today's exam. Side by side comparison of images performed. REVIEW OF SYSTEMS: 12-point ROS completed with patient and negative unless otherwise stated in HPI or below. PHYSICAL EXAM: CONSTITUTIONAL: Agonal breathing, unresponsive VITAL SIGNS: see record. HEENT: Normocephalic, atraumatic. No scleral icterus. Ears and nose externally normal. Pharynx not examined. NECK: JVD difficult to assess. No carotid bruit, no thyromegaly, no adenopathy. CHEST: Rhonchi and rales most of the lung field HEART: S1 and S2 normal with holosystolic murmur MUSCULOSKELETAL: No gross joint deformity or swelling. NEURO: Cranial nerves intact. Grossly intact. No asymmetric findings. SKIN: No rashes, petechiae, concerning changes PSYCHIATRIC: Obtunded ADMIT TO MEDSURG: FLOOR CARE DVT: NA GI: NA Time spent: Today I spent 75 minutes seeing the patient, discussing the patient with ER staff, reviewing Expanse and EPIC notes/diagnostics, discussing the care plan with our care time that includes social work, PT/OT, pharmacy, RT, fci and documenting my impressions and plan in the medical record. [facility] Medical History (Updated 02/26/24 @ 19:30 by Lona Sexton MD) Cognitive decline ?R41.89 - Other symptoms and signs involving cognitive functions and awareness (ICD-10) Chronic kidney disease ?N18.9 - Chronic kidney disease, unspecified (ICD-10) Abdominal aortic aneurysm ?I71.40 - Abdominal aortic aneurysm, without rupture, unspecified (ICD-10) Hepatorenal syndrome ?K76.7 - Hepatorenal syndrome (ICD-10) RLS (restless legs syndrome) ?G25.81 - Restless legs syndrome (ICD-10) Hydrocephalus ?G91.9 - Hydrocephalus, unspecified (ICD-10) Coronary artery disease ?I25.10 - Atherosclerotic heart disease of nikolai coronary artery without angina pectoris (ICD-10) Hypertension (12/16/08) ?I10 - Essential (primary) hypertension (ICD-10) Hyperlipidemia ?E78.5 - Hyperlipidemia, unspecified (ICD-10) Chronic back pain ?M54.9 - Dorsalgia, unspecified (ICD-10) ?G89.29 - Other chronic pain (ICD-10) 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) ?C61 - Malignant neoplasm of prostate (ICD-10) Meningioma ?D32.9 - Benign neoplasm of meninges, unspecified (ICD-10) Sigmoid diverticulosis (03/28/09) ?K57.30 - Diverticulosis of large intestine without perforation or abscess without bleeding (ICD-10) Myocardial infarction ?I21.9 - Acute myocardial infarction, unspecified (ICD-10) Surgical History (Updated 02/26/24 @ 18:22 by Lona Sexton MD) Cataract (02/14/09) ?H26.9 - Unspecified cataract (ICD-10) History of common carotid artery stent placement ?Z98.890 - Other specified postprocedural states (ICD-10) ?Z95.828 - Presence of other vascular implants and grafts (ICD-10) Status post lumbar spine surgery for decompression of spinal cord ?Z98.890 - Other specified postprocedural states (ICD-10) Status post cataract extraction ?Z98.49 - Cataract extraction status, unspecified eye (ICD-10) Status post prostatectomy ?Z90.79 - Acquired absence of other genital organ(s) (ICD-10) Hx of heart artery stent ?Z95.5 - Presence of coronary angioplasty implant and graft (ICD-10) Social History What is your current living situation?: I presently have a place to live Problems where you live: no known problems In the past 12 months, utilities in danger of being shut off: no In the past 12 mos, have been you worried that your food would run out before you had money to buy more?: never true In the past 12 mos, the food you bought just didn't last and you didn't have money to buy more?: never true Smoking Status: Never smoker How often does anyone, including family, friends and others, physically hurt you: never How often does anyone, including family, friends and others, insult or talk down to you: never How often does anyone, including family, friends and others, threaten you with harm: never How often does anyone, including family, friends and others, scream or curse at you: never Meds Home Medications and Allergies Home Medications ?Medication ?Instructions ?Recorded ?Confirmed ?Type aspirin 81 mg tablet,delayed 81 mg PO QDAY 11/27/21 02/09/24 History release (Adult Low Dose Aspirin) gabapentin 300 mg capsule 300 - 600 mg PO BID 02/09/24 History Allergies Allergy/AdvReac Type Severity Reaction Status Date / Time HMG-CoA reductase inhibitor AdvReac Severe leg pain Uncoded 02/09/24 10:25 Exam Const: Vital Signs, click to edit/add: Vital Signs - 24 hr 02/26/24 14:12 02/26/24 14:16 02/26/24 14:50 Temperature 97.1 F L Pulse Rate 97 Pulse Rate [Pulse Oximeter] 78 Respiratory Rate 18 Blood Pressure 115/92 H Blood Pressure [Ri ght Upper Arm] 115/92 H Pulse Oximetry 100 98 98 Oxygen Delivery Me thod Room Air 02/26/24 15:40 02/26/24 17:09 Temperature Pulse Rate 97 101 H Pulse Rate [Pulse Oximeter] Respiratory Rate Blood Pressure 116/93 H 114/87 Blood Pressure [Ri ght Upper Arm] Pulse Oximetry 98 96 Oxygen Delivery Ne thod Hospitalist - H&P: Result Labs Labs: Short CBC 02/26/24 Range/Units 15:15 WBC 9.43 (4.50-11.00) K/uL Hgb 11.1 L (13.5-17.5) gm/dL Hct 35.6 L (37.0-53.0) % Plt Count 141 (140-440) K/uL BMP 02/26/24 15:15 Sodium 141 Potassium 6.0 H Chloride 111 Carbon Dioxide 14 L BUN 61 H Creatinine 3.0 H Glucose 103 Calcium 9.3 Cardiac Enzymes 02/26/24 Range/Units 15:15 Troponin I 0.04 (0.01-0.04) ng/mL Liver Function 02/26/24 Range/Units 15:15 Total Bilirubin 1.6 H (0.1-1.5) mg/dL AST 496 H (12-35) U/L ALT 386 H (4-50) U/L Alkaline Phosphatase 102 (40-150) U/L Albumin 4.2 (3.3-5.0) g/dL Assessment and Plan Assessment and plan (1) Comfort measures only status: Status: Acute (2) Acute on chronic systolic heart failure, NYHA class 4: Problem comment: BNP 58,000. Troponin negative. Dyspneic. Pulmonary edema on chest CT. Hospice appropriate. Will treat 2 comfort for air hunger Status: Acute (3) Hepatorenal syndrome: Problem comment: New transaminitis with portal edema indicates decompensation in to hepatic renal syndrome. Status: Acute (4) Acute hyperkalemia: Problem comment: 6.0-not treating comfort cares Status: Acute (5) Abdominal aortic aneurysm: Problem comment: Multiple aneurysms seen on admission CTs: Ascending thoracic aorta measuring 4.3 centimeters. The mid descending thoracic aorta measures 3.5 centimeters Distal descending thoracic aorta at the level of the diaphragmatic hiatus measures 3.9 centimeters. There is a saccular aneurysm off the distal thoracic aorta measuring 1.7 x 1.6 centimeters. 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 Infrarenal abdominal aortic aneurysm measuring 7.0 x 6.9 cm. 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 Left common iliac artery aneurysms measuring 1.9 cm. Status: Acute (6) Chronic kidney disease: Problem comment: Stage IV Status: Acute (7) Coronary artery disease: Problem comment: Status post [place] and stent attempt in 2020 Status: Acute (8) Adenocarcinoma of prostate: Problem comment: Patient stopped having PSA checked. Last PSA was up to 1.7 in 2020. There is evidence of bladder wall thickening and hydronephrosis and sclerotic lesion in the vertebrae indicating possible reoccurrence/metastasis. Family asked for a follow-up PSA. Status: Acute (9) Cognitive decline: Status: Acute
[2024-02-26] MEDS: fentaNYL 25 MCG/HR PATCH 1 PATCH TRANSDERMA (19:17)
[2024-02-26] MEDS: MORPHINE 10 MG/0.5 ML ORAL SOLN PO (20:09)
[2024-02-26] MEDS: LORazepam 2 MG/ML inj IVP (21:42)
[2024-02-27 01:52] VITALS: RESP 9
[2024-02-27 03:50] VITALS: RESP 16
[2024-02-27] MEDS: LORazepam 2 MG/ML inj IVP ×3 (03:57→13:12)
[2024-02-27 06:15] VITALS: RESP 18
[2024-02-27] MEDS: MORPHINE 10 MG/0.5 ML ORAL SOLN PO ×4 (06:22→15:02)
--- NOTE | 2024-02-27 06:56 | PC.NURSE ---
End of shift [id number]: Pt has been sleeping comfortably with short periods of restlessness overnight. Pt has extended periods of apnea, not taking a breath for up to 90 seconds. PRN IV Ativan given once @ 0357 & PO Morphine once @ 0620 for increased respirations and restlessness. External catheter in place and skin is intact. Fentanyl patch ??present on left outer arm. Repositioned as needed. His son, Anuj was here from [id number] at bedside. Oral cares done as needed.?
[2024-02-27] MEDS: HYOSCYAMINE SULFATE 0.125 MG TAB SUBLINGUAL ×2 (08:51→12:24)
--- NOTE | 2024-02-27 13:58 | P.IMPN_ITS ---
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 Status: Acute (2) Acute on chronic systolic heart failure, NYHA class 4: Problem details: BNP 58,000. Troponin negative. Dyspneic. Pulmonary edema on chest CT. Hospice appropriate. Will treat 2 comfort for air hunger Status: Acute (3) Hepatorenal syndrome: Problem details: New transaminitis with portal edema indicates decompensation in to hepatic renal syndrome. Status: Acute (4) Acute hyperkalemia: Problem details: 6.0-not treating comfort cares Status: Acute (5) Abdominal aortic aneurysm: Problem details: Multiple aneurysms seen on admission CTs: Ascending thoracic aorta measuring 4.3 centimeters. The mid descending thoracic aorta measures 3.5 centimeters Distal descending thoracic aorta at the level of the diaphragmatic hiatus measures 3.9 centimeters. There is a saccular aneurysm off the distal thoracic aorta measuring 1.7 x 1.6 centimeters. 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 Infrarenal abdominal aortic aneurysm measuring 7.0 x 6.9 cm. 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 Left common iliac artery aneurysms measuring 1.9 cm. Status: Acute (6) Chronic kidney disease: Problem details: Stage IV Status: Acute (7) Coronary artery disease: Problem details: Status post [place] and stent attempt in 2020 Status: Acute (8) Adenocarcinoma of prostate: Problem details: Patient stopped having PSA checked. Last PSA was up to 1.7 in 2020. There is evidence of bladder wall thickening and hydronephrosis and sclerotic lesion in the vertebrae indicating possible reoccurrence/metastasis. Family asked for a follow-up PSA. Status: Acute (9) Cognitive decline: Status: Acute Plan as above Subjective Date Seen: 02/27/24 Interval history: Pt seen at bed side. I met his and discussed the next steps to put her under comfort care/ hospice. Exam Narrative: Exam Narrative: Limited exam as pt is under comfort care GENERAL: Sleeping, open mouth RESP: labored breathing CARDIO: +ve murmer PSYCH: Unable to evaluate Const: Vital Signs, click to edit/add: Vital Signs - 24 hr 02/26/24 14:12 02/26/24 14:16 02/26/24 14:50 Temperature 97.1 F L Pulse Rate 97 Pulse Rate [Pulse Oximeter] 78 Respiratory Rate 18 Blood Pressure 115/92 H Blood Pressure [Ri ght Upper Arm] 115/92 H Pulse Oximetry 100 98 98 Oxygen Delivery Me thod Room Air 02/26/24 15:40 02/26/24 17:09 02/26/24 18:55 Temperature 97.1 F L Pulse Rate 97 101 H Pulse Rate [Pulse Oximeter] Respiratory Rate 13 Blood Pressure 116/93 H 114/87 Blood Pressure [Ri ght Upper Arm] Pulse Oximetry 98 96 Oxygen Delivery Me thod Room Air 02/26/24 18:55 02/26/24 23:00 02/27/24 01:52 Temperature Pulse Rate Pulse Rate [Pulse Oximeter] Respiratory Rate 13 12 9 L Blood Pressure Blood Pressure [Ri ght Upper Arm] Pulse Oximetry Oxygen Delivery Md thod Room Air 02/27/24 03:50 02/27/24 06:15 Temperature Pulse Rate Pulse Rate [Pulse Oximeter] Respiratory Rate 16 18 Blood Pressure Blood Pressure [Ri ght Upper Arm] Pulse Oximetry Oxygen Delivery Me thod Labs Labs: Laboratory Results - last 24 hr 02/26/24 02/26/24 02/26/24 14:45 15:15 19:20 WBC 9.43 RBC 3.47 L Hgb 11.1 L Hct 35.6 L MCV 103 H MCH 32 MCHC 31 L RDW Coeff of Khadar 17.9 H Plt Count 141 Neut % (Auto) 85.7 H Lymph % (Auto) 7.8 L [place] % (Auto) 6.0 Eos % (Auto) 0.0 Baso % (Auto) 0.2 Neut # (Auto) 8.10 H Lymph # (Auto) 0.70 L [place] # (Auto) 0.60 Eos # (Auto) 0.00 Baso # (Auto) 0.02 Abs Immat Gran (auto) 0.03 Imm/Tot Granulo (auto) 0.3 ESR 7 VBG pH 7.269 L VBG pCO2 33 L VBG pO2 < 30.1 VBG HCO3 15 L Sodium 141 Potassium 6.0 H Chloride 111 Carbon Dioxide 14 L Anion Gap 16 H BUN 61 H Creatinine 3.0 H Estimated GFR 20 Glucose 103 Lactate 3.3 H Calcium 9.3 Magnesium 2.6 Total Bilirubin 1.6 H AST 496 H ALT 386 H Alkaline Phosphatase 102 Troponin I 0.04 C-Reactive Protein 2.1 H NT-Pro-B Natriuret Pep 09563 Total Protein 7.2 Albumin 4.2 PSA Screen 37.70 H SARS-CoV-2 (PCR) Negative SARS-CoV-2 Influenza Type A (PCR) Negative PCR FLU A Influenza Type B (PCR) Negative PCR FLU B RSV (PCR) Negative PCR RSV Lab Acknowledgement Test Added
[2024-02-27 15:00] VITALS: RESP 10
--- NOTE | 2024-02-27 15:25 | PC.NURSE ---
Patient seemed comfortable most of the shift. Keeps eyes closed all shift. Turned and repositioned q 2 hours. PRN medications given( See MAR). Patient rattle increased as shift progressed. Family expressed concern. MD was notified. New medication orders obtained. Patient given a bedbath today. No urine output or BM this shift. Skin intact
[2024-02-27] MEDS: GLYCOPYRROLATE 0.2 MG/ML INJ IVP (15:48)
[2024-02-27] MEDS: fentaNYL 50 MCG/HR PATCH 1 PATCH TRANSDERMA (15:48)
[2024-02-27] MEDS: fentaNYL 25 MCG/HR PATCH 1 PATCH TRANSDERMA (15:58)
--- NOTE | 2024-02-27 16:44 | PC.NURSE ---
: patient at 1615, MD Sexton confirmed passing. Family at bedside. [facility] notified at 1630 and patient did not qualify for donation. [facility] services will be contacted once family has okayed staff to do so. Fent. patch located on left arm.
--- NOTE | 2024-02-27 17:21 | P.DN_ITS ---
Pronouncement Note Date and Time of Date of : 02/27/24 Time of : 16:15 PCOD Preliminary cause of : Congestive heart failure, NYHA class 3 Contributing Factors (1) Acute on chronic systolic heart failure, NYHA class 4: (2) Hepatorenal syndrome: (3) Acute hyperkalemia: (4) Chronic kidney disease: (5) Adenocarcinoma of prostate: (6) Cognitive decline: Summary Additional details: Patient was admitted 02/26/24 in acute on chronic systolic heart failure. This was complicated by acute hepatic renal syndrome. He was also hyperkalemic. His prostate cancer, left unmonitored over the last 2 years, had metastasized. He was in cognitive decline more rapidly in recent months. He was admitted for comfort cares on the night of 02/26/2024. There were no heroic measures taken and his transition to was peaceful and monitored for comfort. At bedside was his , daughter and son. Time of was 4:15 p.m. on 02/27/2024. Additional Data Confirmation of : no pulse Family: at bedside Attending/PCP notified?: No Attending physician: Lona Sexton MD Time Seen by Provider: 16:20 Date Seen: 02/27/24 Was code activated?: No Autopsy requested?: No financial compliance examiner notified?: No Organ bank notified?: Yes Advance directives: Yes
== END 2024-02-27 16:15 | disposition expired ==
LOC: ED 18:01 → MEDSURG 18:14
PROVIDERS: Admitting Provider Family Medicine; Emergency Provider Family Medicine; PCP Family Medicine; Visit Provider Family Medicine
DX: I50.23 Acute on chronic systolic (congestive) heart failure (principal); Z51.5 Encounter for palliative care; K76.7 Hepatorenal syndrome; I71.40 Abdominal aortic aneurysm, without rupture, unspecified; I13.0 Hypertensive heart and chronic kidney disease with heart failure and stage 1 through stage 4 chronic kidney disease, or unspecified chronic kidney disease; N18.4 Chronic kidney disease, stage 4 (severe); I50.9 Heart failure, unspecified; I25.10 Atherosclerotic heart disease of native coronary artery without angina pectoris; C61 Malignant neoplasm of prostate; R41.89 Other symptoms and signs involving cognitive functions and awareness; R00.0 Tachycardia, unspecified; E87.5 Hyperkalemia; E78.5 Hyperlipidemia, unspecified; M54.9 Dorsalgia, unspecified; Z79.82 Long term (current) use of aspirin; Z95.828 Presence of other vascular implants and grafts; Z95.5 Presence of coronary angioplasty implant and graft; Z12.5 Encounter for screening for malignant neoplasm of prostate
CPT/HCPCS: 36415; 71045; 71250; 74176; 80053; 81001; 82803; 83605; 83735; 83880; 84484; 85025; 85651; 86140; 87631; 93005; 94761; 96361; 96374; 96375; 96376; 99285; G0103; A9270; G0378; J2060; J7030